=== PATIENT | female | born 1990 | race American Indian/Alaskan Native ===

== ENCOUNTER 2018-03-15 17:12 | Inpatient (IN) | payer MEDICAID ==
[2018-03-15 17:13] VITALS: BMI 38.4
[2018-03-15 18:36] LABS: VENOUS BLOOD GAS BASE EXCESS -2.2 mmol/L (0.0-2.0); VENOUS BLOOD GAS PCO2 47 mmHg (40-60); VENOUS BLOOD GAS PO2 19 mm/Hg (30-55); VENOUS BLOOD PH 7.32 (7.32-7.43)
[2018-03-15 18:42] LABS: BASO % 0.2 % (0.0-2.0); EOS % 0.1 % (0.0-4.0); LYMPH # 1.8 K/uL (1.0-4.3); MEAN CELL VOLUME 75.9 fl (81.0-99.0); MEAN CORPUSCULAR HEMOGLOBIN 23.2 pg (27.0-31.0); MEAN CORPUSCULAR HGB CONC 30.5 g/dL (33.0-37.0); MEAN PLATELET VOLUME 7.7 fl (7.2-11.7); MONO # 0.7 K/uL (0.0-0.8); MONO % 4.2 % (0.0-10.0); NEUT # 13.6 K/uL (1.8-7.0); NEUT % 84.5 % (50.0-75.0); RBC 3.47 Mil/uL (3.80-5.20); RED CELL DISTRIBUTION WIDTH 29.6 % (11.5-14.5); WHITE BLOOD COUNT 16.1 K/uL (4.8-10.8)
[2018-03-15 18:47] LABS: ALB/GLOB RATIO 0.9 (1.0-2.1); ALBUMIN 3.8 g/dL (3.5-5.0); ALT/SGPT 21 U/L (9-52); AST/SGOT 19 U/L (14-36); BLOOD UREA NITROGEN 6 mg/dl (7-17); CALCIUM 9.2 mg/dL (8.4-10.2); GFR NON-AFRICAN AMERICAN > 60; LIPASE 38 U/L (23-300)
--- NOTE | 2018-03-15 18:58 | ED PDOC ---
HPI: Female Pain Time Seen by Provider: 03/15/18 17:23 Chief Complaint (Nursing): Female Genitourinary Chief Complaint (Provider): Female Genitourinary History Per: Patient History/Exam Limitations: no limitations Onset/Duration Of Symptoms: Hrs Current Symptoms Are (Timing): Still Present Additional Complaint(s): 27 y/o female sent from [facility] by Dr. Marc. Patient had presented with lower abdominal pain and is associated with generalized weakness. Patient is found to have hydrosalpinx on CT and US showed hemorrhagic cysts with free fluid and a white blood cell count of 20,000. Dr. Marc contacted Dr. Mcneal here at this hospital for transfer of DASHBOARD DEVELOPER follow up. Provider also spoke with myself with the understanding brick pointer wanted repeat labs on arrival to [place] ED. Of note, blood culture and antibiotics were not started at [facility]. Blood cultures sent and antibiotics to be given pending further recommendations from [facility]ASHBOARD DEVELOPER. Patient states she continues to have abdominal discomfort worse in the lower abdomen. Patient states pain has worsened since menstruation cycle began on 02/27/2018. Menstruation has continued since. Patient additionally reports a PMHc of Sickle Cell Disease and Anemia requiring weekly PRBC transfusions. Patient scheduled for court placement at [facility] for increasing need of transfusion. Patient reports no changed of pain or new onset since being evaluated at [facility]. Patient understanding she came to this hospital for upgraded gynecologic pain. Provider spoke to Dr. Alberto who states she prefers to have repeat US at this hospital based on what she determines to be an unclear read of the [facility] Transvaginal US. Provider contacted radiologist, Dr. Carrizales for clarification of read unsuccessful. Provider to repeat labs including cultures and Transvaginal US ordered as per request of DASHBOARD DEVELOPER. PMD: Dede Fay Past Medical History Reviewed: Historical Data, Nursing Documentation, Vital Signs Vital Signs: Last Vital Signs Temp 99.6 F 03/15/18 17:15 Pulse 92 H 03/15/18 17:15 Resp 18 03/15/18 17:15 BP 136/70 03/15/18 17:15 Pulse Ox 100 03/15/18 17:15 - Medical History PMH: Anemia, Sickle Cell Disease Denies: Depression, Chronic Kidney Disease - Surgical History Surgical History: Tonsillectomy Denies: Pacemaker - Family History Family History: States: Unknown Family Hx - Immunization History Hx Tetanus Toxoid Vaccination: Yes Hx Influenza Vaccination: No Hx Pneumococcal Vaccination: No - Home Medications Home Medications: Ambulatory Orders Medication Instructions Recorded No Known Home Med 03/12/18 - Allergies Allergies/Adverse Reactions: Allergies Allergy/AdvReac Type Severity Reaction Status Date / Time No Known Allergies Allergy Verified 03/15/18 08:59 Review of Systems ROS Statement: Except As Marked, All Systems Reviewed And Found Negative Constitutional: Positive for: Other (Transfer) Gastrointestinal: Positive for: Abdominal Pain (lower) Physical Exam - Reviewed Nursing Documentation Reviewed: Yes Vital Signs Reviewed: Yes - Physical Exam Appears: Positive for: No Acute Distress Skin: Positive for: Pallor Eye Exam: Positive for: Conjunctival injection Neck: Positive for: Normal Cardiovascular/Chest: Positive for: Regular Rate, Rhythm. Negative for: Murmur Respiratory: Positive for: Normal Breath Sounds. Negative for: Respiratory Distress Gastrointestinal/Abdominal: Positive for: Soft, Tenderness (to all quadrants however worse in the lower), Guarding (Diffuse) Extremity: Positive for: Normal ROM. Negative for: Deformity Neurologic/Psych: Positive for: Alert, Oriented - Laboratory Results Result Diagrams: 03/15/18 18:29 03/15/18 18:29 - ECG O2 Sat by Pulse Oximetry: 100 (RA) Pulse Ox Interpretation: Normal Medical Decision Making Medical Decision Making: Time: 1739 A/P: Patient to be transferred to [facility], pending results of blood work and Transvaginal US. Plan: -- EKG -- HCG, Qualitative Series -- Pelvis/Transvag US Time: 1852 Plan: -- Urine Culture -- Blood Culture -- CBC with Differentials -- Lipase -- CMP -- VBG -- Type and Screen Time: 1899 -- Case discussed with overnight ED doctor who will reassess patient. ___ Scribe Attestation: Documented by Ailyn Barrett acting as a scribe for Mirtha Joyner MD. Provider Scribe Attestation: All medical record entries made by the Scribe were at my direction and personally dictated by me. I have reviewed the chart and agree that the record accurately reflects my personal performance of the history, physical exam, medical decision making, and the department course for this patient. I have also personally directed, reviewed, and agree with the discharge instructions and disposition. Disposition - Disposition Forms: [employer] (Algerian)
[2018-03-15 19:12] LABS: SQUAMOUS EPITHIAL 2 /hpf (0-5); URINE BACTERIA RARE (<OCC); URINE BILIRUBIN NEGATIVE (NEGATIVE); URINE BLOOD LARGE (NEGATIVE); URINE CLARITY SLIGHTY-CLOUDY (Clear); URINE COLOR YELLOW (YELLOW); URINE GLUCOSE (UA) NEG (Normal); URINE LEUKOCYTE ESTERASE SMALL Leu/uL (Negative); URINE PROTEIN 100 mg/dL (NEGATIVE)
--- NOTE | 2018-03-15 19:50 | ED PDOC ---
- Laboratory Results Result Diagrams: 03/16/18 00:09 03/15/18 18:29 - ECG O2 Sat by Pulse Oximetry: 100 (RA) Pulse Ox Interpretation: Normal Medical Decision Making Medical Decision Making: Time: 190 -- Patient endorsed to me by Dr. Joyner, pending ER workup, reassessment and final ER disposition. --Sign-out from Dr. Joyner also included instructions to hold ABx until eval by CD REACTOR OPERATOR HEAD 2300 --U/S results made available --Dr. Mcneal made aware of patient 0000 --Patient spiked temperature and became tachycardic --Patient moved to monitored bed 100 --Dr. Mcneal at bedside, agrees with management for PID --Patient had urine and blood cultures including GC/Chlamydia prior to ABx --Will admit to CD REACTOR OPERATOR HEAD service in tele given sepsis Scribe Attestation: Documented by Ailyn Barrett acting as a scribe for Johnathan Lane MD. Provider Scribe Attestation: All medical record entries made by the Scribe were at my direction and personally dictated by me. I have reviewed the chart and agree that the record accurately reflects my personal performance of the history, physical exam, medical decision making, and the department course for this patient. I have also personally directed, reviewed, and agree with the discharge instructions and disposition. Disposition Discussed With : Mirtha Mcneal Doctor Will See Patient In The: ED - Clinical Impression Clinical Impression: Pelvic inflammatory disease - POA Present On Arrival: None - Disposition Disposition: Hospitalized as Observation Patient Disposition Time: 01:00 Forms: [employer] (Sinhala)
[2018-03-15] MEDS ORDERED: Sodium Chloride 0.9% 1,000 ML IV STA (23:29)
[2018-03-15] MEDS ORDERED: cefOXitin 2 GM in Sodium Chloride 0.9% 100 ML IVPB ONE (23:44)
[2018-03-16 00:25] LABS: HEMOGLOBIN 9.4 g/dL (12.0-16.0); MEAN CELL VOLUME 73.7 fl (81.0-99.0); MEAN CORPUSCULAR HEMOGLOBIN 23.2 pg (27.0-31.0); MEAN CORPUSCULAR HGB CONC 31.5 g/dL (33.0-37.0); RBC 4.07 Mil/uL (3.80-5.20); RED CELL DISTRIBUTION WIDTH 29.5 % (11.5-14.5); WHITE BLOOD COUNT 20.1 K/uL (4.8-10.8)
[2018-03-16 00:33] LABS: VENOUS BLOOD GAS BASE EXCESS -2.2 mmol/L (0.0-2.0); VENOUS BLOOD GAS PCO2 41 mmHg (40-60); VENOUS BLOOD GAS PO2 38 mm/Hg (30-55); VENOUS BLOOD PH 7.36 (7.32-7.43)
--- NOTE | 2018-03-16 02:24 | CP.PCM.HP ---
<José James - Last Filed: 03/16/18 02:44> History of Present Illness - History of Present Illness History of Present Illness: 27 y/o AA female with PMHx of chronic iron deficiency and sickle cell trait presents to ED with lower abdominal pain and fever. Patient was evaluated at [facility] where she was diagnosed with PID. Patient then transferred to [facility] for further management. Patient reports lower abdominal pain that started on 02/27/18 and progressively worsened over next 2 weeks. Patient also had associated nausea and 1 x day fever. LMP 02/27/18 and has been continuous since then. Patient is sexually active with new sexual partner for last 6 months. Pt tested positive for Chlamydia 2 months ago which was treated with Abx. She reports using contraception inconsistently. As per patient she also receives iron transfusion weekly since age 15 for chronic anemia. Denies any headache, dizziness, diarrhea, vomiting, dysuria, CP or SOB. PMHx: Sickle cell trait PSHx: Tonsillectomy 2011 Allergies: Denies F/H: DM - grandmother Social Hx: Denies tobacco, drug use, social alcohol Medications: None PGyn Hx: H/O + chlamydia 01/06 treated with Abx ED course: CT abdomen: There are at least 2 peripherally enhancing (ring-like) foci within the right aspect of the pelvis likely within the right adnexal region measuring approximately 3.1 x 2.9 and 2.2 x 1.5 cm with surrounding free fluid extending into the cul de sac and extending into the right to the left side seroma partia lly surrounding the posterior margin of the left adnexal as well. US consistent with CT findings. VS: Febrile, HR 92, stable otherwise Started on Cefoxitin 2 mg IVPB and Doxycycline 100 mg once Blood culture, CBC, CMP Urine culture and GC/Chlamydia sent. Patient to be transferred to [facility] for monitoring Present on Admission - Present on Admission Any Indicators Present on Admission: No History of DVT/PE: No History of Uncontrolled Diabetes: No Urinary Catheter: No Decubitus Ulcer Present: No Review of Systems - Constitutional Constitutional: Fever, Weakness - EENT Eyes: absent: Change in Vision - Cardiovascular Cardiovascular: absent: Chest Pain - Respiratory Respiratory: absent: Dyspnea on Exertion - Gastrointestinal Gastrointestinal: Abdominal Pain - Genitourinary Genitourinary: absent: Dysuria - Reproductive: Female Reproductive:Female: Currently Menstual, Heavy Menses, Vaginal Discharge Past Patient History - Infectious Disease Hx of Infectious Diseases: None - Tetanus Immunizations Tetanus Immunization: Unknown - Past Social History Smoking Status: Never Smoked - CARDIAC Hx Pacemaker: No - PULMONARY Hx Respiratory Disorders: No - NEUROLOGICAL Hx Paralysis: No - HEENT Hx HEENT Problems: No - RENAL Hx Chronic Kidney Disease: No - ENDOCRINE/METABOLIC Hx Endocrine Disorders: No - HEMATOLOGICAL/ONCOLOGICAL Hx Anemia: Yes Hx Sickle Cell Disease: Yes - INTEGUMENTARY Hx Dermatological Problems: No - MUSCULOSKELETAL/RHEUMATOLOGICAL Hx Musculoskeletal Disorders: No - GASTROINTESTINAL Hx Gastrointestinal Disorders: No - GENITOURINARY/GYNECOLOGICAL Hx Genitourinary Disorders: No - PSYCHIATRIC Hx Depression: No - SURGICAL HISTORY Hx Tonsillectomy: Yes - ANESTHESIA Hx Anesthesia Reactions: No Hx Malignant Hyperthermia: No Meds Allergies/Adverse Reactions: Allergies Allergy/AdvReac Type Severity Reaction Status Date / Time No Known Allergies Allergy Verified 03/15/18 08:59 Physical Exam - Constitutional Appears: Toxic - Head Exam Head Exam: ATRAUMATIC, NORMAL INSPECTION, NORMOCEPHALIC - ENT Exam ENT Exam: Mucous Membranes Moist - Respiratory Exam Respiratory Exam: Clear to Auscultation Bilateral, NORMAL BREATHING PATTERN. absent: Rales, Rhonchi, Wheezes - Cardiovascular Exam Cardiovascular Exam: Tachycardia, +S1, +S2 - GI/Abdominal Exam GI & Abdominal Exam: Soft, Tenderness. absent: Distended - Exam Bimanual exam: Adnexal, Cervical Motion Tendernes - Back Exam Back exam: absent: CVA tenderness (L), CVA tenderness (R) - Neurological Exam Neurological exam: Alert, Oriented x3 - Psychiatric Exam Psychiatric exam: Normal Affect, Normal Mood Results - Vital Signs Recent Vital Signs: Last Vital Signs Temp 101.4 F H 03/15/18 23:28 Pulse 92 H 03/15/18 17:15 Resp 16 03/15/18 23:28 BP 116/70 03/15/18 23:28 Pulse Ox 100 03/16/18 01:57 - Labs Result Diagrams: 03/16/18 00:09 03/15/18 18:29 Labs: Laboratory Results - last 24 hr 03/15/18 03/15/18 03/15/18 18:29 18:29 18:30 WBC 16.1 H RBC 3.47 L Hgb 8.0 L Hct 26.3 L MCV 75.9 L MCH 23.2 L MCHC 30.5 L RDW 29.6 H Plt Count 268 MPV 7.7 Neut % (Auto) 84.5 H Lymph % (Auto) 11.0 L Campbell % (Auto) 4.2 Eos % (Auto) 0.1 Baso % (Auto) 0.2 Neut # (Auto) 13.6 H Lymph # (Auto) 1.8 Campbell # (Auto) 0.7 Eos # (Auto) 0.0 Baso # (Auto) 0.0 pO2 19 L VBG pH 7.32 VBG pCO2 47 VBG HCO3 21.2 VBG Total CO2 25.6 VBG O2 Sat (Calc) 33.3 L VBG Base Excess -2.2 L VBG Potassium 3.7 Glucose 90 Lactate 1.4 FiO2 21.0 Sodium 139 134.0 Potassium 3.9 Chloride 106 105.0 Carbon Dioxide 21 L Anion Gap 16 BUN 6 L Creatinine 0.7 Est GFR ( Amer) > 60 Est GFR (Non-Af Amer) > 60 Random Glucose 90 Calcium 9.2 Total Bilirubin 0.5 AST 19 ALT 21 Alkaline Phosphatase 92 Total Protein 8.0 Albumin 3.8 Globulin 4.2 H Albumin/Globulin Ratio 0.9 L Lipase 38 Serum HCG, Qual Venous Blood Potassium 3.7 Urine Color Urine Clarity Urine pH Ur Specific Pioneer Urine Protein Urine Glucose (UA) Urine Ketones Urine Blood Urine Nitrate Urine Bilirubin Urine Urobilinogen Ur Leukocyte Esterase Urine RBC (Auto) Urine Microscopic WBC Ur Squamous Epith Cells Urine Bacteria Blood Type Antibody Screen BBK History Checked 03/15/18 03/15/18 03/15/18 18:53 19:30 19:30 WBC RBC Hgb Hct MCV MCH MCHC RDW Plt Count MPV Neut % (Auto) Lymph % (Auto) Campbell % (Auto) Eos % (Auto) Baso % (Auto) Neut # (Auto) Lymph # (Auto) Campbell # (Auto) Eos # (Auto) Baso # (Auto) pO2 VBG pH VBG pCO2 VBG HCO3 VBG Total CO2 VBG O2 Sat (Calc) VBG Base Excess VBG Potassium Glucose Lactate FiO2 Sodium Potassium Chloride Carbon Dioxide Anion Gap BUN Creatinine Est GFR ( Amer) Est GFR (Non-Af Amer) Random Glucose Calcium Total Bilirubin AST ALT Alkaline Phosphatase Total Protein Albumin Globulin Albumin/Globulin Ratio Lipase Serum HCG, Qual Negative Venous Blood Potassium Urine Color Yellow Urine Clarity Slighty-cloudy Urine pH 5.0 Ur Specific Pioneer 1.059 H Urine Protein 100 Urine Glucose (UA) Neg Urine Ketones 20 Urine Blood Large Urine Nitrate Negative Urine Bilirubin Negative Urine Urobilinogen 4.0 H Ur Leukocyte Esterase Small Urine RBC (Auto) 1078 H Urine Microscopic WBC 11 H Ur Squamous Epith Cells 2 Urine Bacteria Rare Blood Type A NEGATIVE Antibody Screen Negative BBK History Checked Patient has bt 03/16/18 03/16/18 00:09 00:28 WBC 20.1 H RBC 4.07 Hgb 9.4 L Hct 30.0 L MCV 73.7 L D MCH 23.2 L MCHC 31.5 L RDW 29.5 H Plt Count 458 H D MPV Neut % (Auto) Lymph % (Auto) Campbell % (Auto) Eos % (Auto) Baso % (Auto) Neut # (Auto) Lymph # (Auto) Campbell # (Auto) Eos # (Auto) Baso # (Auto) pO2 38 VBG pH 7.36 VBG pCO2 41 VBG HCO3 22.5 VBG Total CO2 24.5 VBG O2 Sat (Calc) 76.9 H VBG Base Excess -2.2 L VBG Potassium 3.3 L Glucose 133 H Lactate 1.1 FiO2 21.0 Sodium 133.0 Potassium Chloride 105.0 Carbon Dioxide Anion Gap BUN Creatinine Est GFR ( Amer) Est GFR (Non-Af Amer) Random Glucose Calcium Total Bilirubin AST ALT Alkaline Phosphatase Total Protein Albumin Globulin Albumin/Globulin Ratio Lipase Serum HCG, Qual Venous Blood Potassium 3.3 L Urine Color Urine Clarity Urine pH Ur Specific Pioneer Urine Protein Urine Glucose (UA) Urine Ketones Urine Blood Urine Nitrate Urine Bilirubin Urine Urobilinogen Ur Leukocyte Esterase Urine RBC (Auto) Urine Microscopic WBC Ur Squamous Epith Cells Urine Bacteria Blood Type Antibody Screen BBK History Checked Assessment & Plan - Assessment and Plan (Free Text) Assessment: 7 y/o AA female with PMHx of chronic iron deficiency and sickle cell trait presents to ED with lower abdominal pain and fever. Physical exam, CT abdomen and US TV consistent with PID. Plan: PID - Febrile, Tachycardic - S/P NS 2L bolus in ER - On Telemetry, Vitals signs Q4 - Started on Mefoxin 2 gm IVPB Q6hr - Started on Doxycycline 100 mg IVPB BID - NS 1L @ 100 ml/hr - F/U Blood culture, Urine culture and GC/Chlamydia - Monitor CBC Iron deficiency anemia - Chronic - Will monitor CBC - Outpatient F/U with Childhood Development Teacher and Ob-Teacher Counselor for further evaluation DVT prophylaxis - SCDs <Mirtha Mcneal - Last Filed: 03/16/18 17:44> Results - Vital Signs Recent Vital Signs: Last Vital Signs Temp 98.4 F 03/16/18 16:11 Pulse 83 03/16/18 16:11 Resp 16 03/16/18 16:11 BP 98/64 L 03/16/18 16:11 Pulse Ox 97 03/16/18 16:11 - Labs Result Diagrams: 03/16/18 10:43 03/15/18 18:29 Labs: Laboratory Results - last 24 hr 03/15/18 03/15/18 03/15/18 18:29 18:29 18:30 WBC 16.1 H RBC 3.47 L Hgb 8.0 L Hct 26.3 L MCV 75.9 L MCH 23.2 L MCHC 30.5 L RDW 29.6 H Plt Count 268 MPV 7.7 Neut % (Auto) 84.5 H Lymph % (Auto) 11.0 L Campbell % (Auto) 4.2 Eos % (Auto) 0.1 Baso % (Auto) 0.2 Neut # (Auto) 13.6 H Lymph # (Auto) 1.8 Campbell # (Auto) 0.7 Eos # (Auto) 0.0 Baso # (Auto) 0.0 Neutrophils % (Manual) Band Neutrophils % Lymphocytes % (Manual) Monocytes % (Manual) Platelet Estimate Hypochromasia (manual) Anisocytosis (manual) Microcytosis (manual) Ovalocytes pO2 19 L VBG pH 7.32 VBG pCO2 47 VBG HCO3 21.2 VBG Total CO2 25.6 VBG O2 Sat (Calc) 33.3 L VBG Base Excess -2.2 L VBG Potassium 3.7 Glucose 90 Lactate 1.4 FiO2 21.0 Sodium 139 134.0 Potassium 3.9 Chloride 106 105.0 Carbon Dioxide 21 L Anion Gap 16 BUN 6 L Creatinine 0.7 Est GFR ( Amer) > 60 Est GFR (Non-Af Amer) > 60 Random Glucose 90 Calcium 9.2 Total Bilirubin 0.5 AST 19 ALT 21 Alkaline Phosphatase 92 Total Protein 8.0 Albumin 3.8 Globulin 4.2 H Albumin/Globulin Ratio 0.9 L Lipase 38 Serum HCG, Qual Venous Blood Potassium 3.7 Urine Color Urine Clarity Urine pH Ur Specific Pioneer Urine Protein Urine Glucose (UA) Urine Ketones Urine Blood Urine Nitrate Urine Bilirubin Urine Urobilinogen Ur Leukocyte Esterase Urine RBC (Auto) Urine Microscopic WBC Ur Squamous Epith Cells Urine Bacteria Blood Type Antibody Screen BBK History Checked 03/15/18 03/15/18 03/15/18 18:53 19:30 19:30 WBC RBC Hgb Hct MCV MCH MCHC RDW Plt Count MPV Neut % (Auto) Lymph % (Auto) Campbell % (Auto) Eos % (Auto) Baso % (Auto) Neut # (Auto) Lymph # (Auto) Campbell # (Auto) Eos # (Auto) Baso # (Auto) Neutrophils % (Manual) Band Neutrophils % Lymphocytes % (Manual) Monocytes % (Manual) Platelet Estimate Hypochromasia (manual) Anisocytosis (manual) Microcytosis (manual) Ovalocytes pO2 VBG pH VBG pCO2 VBG HCO3 VBG Total CO2 VBG O2 Sat (Calc) VBG Base Excess VBG Potassium Glucose Lactate FiO2 Sodium Potassium Chloride Carbon Dioxide Anion Gap BUN Creatinine Est GFR ( Amer) Est GFR (Non-Af Amer) Random Glucose Calcium Total Bilirubin AST ALT Alkaline Phosphatase Total Protein Albumin Globulin Albumin/Globulin Ratio Lipase Serum HCG, Qual Negative Venous Blood Potassium Urine Color Yellow Urine Clarity Slighty-cloudy Urine pH 5.0 Ur Specific Pioneer 1.059 H Urine Protein 100 Urine Glucose (UA) Neg Urine Ketones 20 Urine Blood Large Urine Nitrate Negative Urine Bilirubin Negative Urine Urobilinogen 4.0 H Ur Leukocyte Esterase Small Urine RBC (Auto) 1078 H Urine Microscopic WBC 11 H Ur Squamous Epith Cells 2 Urine Bacteria Rare Blood Type A NEGATIVE Antibody Screen Negative BBK History Checked Patient has bt 03/16/18 03/16/18 03/16/18 00:09 00:28 10:43 WBC 20.1 H 15.9 H RBC 4.07 3.64 L Hgb 9.4 L 8.5 L Hct 30.0 L 26.9 L MCV 73.7 L D 74.0 L MCH 23.2 L 23.4 L MCHC 31.5 L 31.6 L RDW 29.5 H 29.3 H Plt Count 458 H D 400 MPV 7.7 Neut % (Auto) 83.4 H Lymph % (Auto) 9.5 L Campbell % (Auto) 6.6 Eos % (Auto) 0.3 Baso % (Auto) 0.2 Neut # (Auto) 13.3 H Lymph # (Auto) 1.5 Campbell # (Auto) 1.0 H Eos # (Auto) 0.0 Baso # (Auto) 0.0 Neutrophils % (Manual) 80 H Band Neutrophils % 2 Lymphocytes % (Manual) 10 L Monocytes % (Manual) 8 Platelet Estimate Normal Hypochromasia (manual) Moderate Anisocytosis (manual) Marked Microcytosis (manual) Slight Ovalocytes Slight pO2 38 VBG pH 7.36 VBG pCO2 41 VBG HCO3 22.5 VBG Total CO2 24.5 VBG O2 Sat (Calc) 76.9 H VBG Base Excess -2.2 L VBG Potassium 3.3 L Glucose 133 H Lactate 1.1 FiO2 21.0 Sodium 133.0 Potassium Chloride 105.0 Carbon Dioxide Anion Gap BUN Creatinine Est GFR ( Amer) Est GFR (Non-Af Amer) Random Glucose Calcium Total Bilirubin AST ALT Alkaline Phosphatase Total Protein Albumin Globulin Albumin/Globulin Ratio Lipase Serum HCG, Qual Venous Blood Potassium 3.3 L Urine Color Urine Clarity Urine pH Ur Specific Pioneer Urine Protein Urine Glucose (UA) Urine Ketones Urine Blood Urine Nitrate Urine Bilirubin Urine Urobilinogen Ur Leukocyte Esterase Urine RBC (Auto) Urine Microscopic WBC Ur Squamous Epith Cells Urine Bacteria Blood Type Antibody Screen BBK History Checked Assessment & Plan - Assessment and Plan (Free Text) Plan: OB Hospitalist Addendum: Pt seen and examined by me. Agree w/ above. 27 yo w/ abdominal pain x 2 weeks w/ dx PID. Pt started on IV fluids, cefoxitin and doxycycline for PID coverage. Pt reports that she has had this period since 02/27/2018. Pt reports that she usually has monthly periods that last for only 4 days. Pt has been dx'd w/ anemia since menarche. Rec that she f/u w/ gyneco logist in [place] for irregular bleeding. (ES)
[2018-03-16] MEDS: Sodium Chloride 0.9% 1,000 ML IV SCH ×4 (02:31→23:06)
[2018-03-16] MEDS: cefOXitin 2 GM in Sodium Chloride 0.9% 100 ML IVPB SCH ×3 (06:15→23:15)
[2018-03-16 10:53] LABS: BASO % 0.2 % (0.0-2.0); EOS % 0.3 % (0.0-4.0); HEMOGLOBIN 8.5 g/dL (12.0-16.0); LYMPH # 1.5 K/uL (1.0-4.3); LYMPH % 9.5 % (20.0-40.0); MEAN CORPUSCULAR HEMOGLOBIN 23.4 pg (27.0-31.0); MEAN CORPUSCULAR HGB CONC 31.6 g/dL (33.0-37.0); MEAN PLATELET VOLUME 7.7 fl (7.2-11.7); MONO % 6.6 % (0.0-10.0); NEUT # 13.3 K/uL (1.8-7.0); NEUT % 83.4 % (50.0-75.0); PLATELET COUNT 400 K/uL (130-400); RBC 3.64 Mil/uL (3.80-5.20); RED CELL DISTRIBUTION WIDTH 29.3 % (11.5-14.5); WHITE BLOOD COUNT 15.9 K/uL (4.8-10.8)
--- NOTE | 2018-03-16 11:48 | CP.PCM.CON ---
History of Present Illness - History of Present Illness History of Present Illness: Infectious Disease Consultation Note- asked to see this patietn at the request of toppiece cutter for PID and help with antibiotic management. HPI- Patient is a 27 year old female with PMH f sickle cell trait , Irone deficinecy anemia who presented to [facility] ED yesterday with c/o lower abd. pain and fever and was diagnosed with PID there but was transferred here for further work up and treatment. Patient reports lower abdominal pain that started on 02/27/18 and progressively worsened over next 2 weeks. Patient also had associated nausea and 1 x day fever. LMP 02/27/18 and has been continuous since then. Patient is sexually active with new sexual partner for last 6 months. Pt tested positive for Chlamydia 2 months ago which was treated with Abx. She reports using contraception inconsistently. As per patient she also receives iron transfusion weekly since age 15 for chronic anemia. Denies any headache, dizziness, diarrhea, vomiting, dysuria, CP or SOB. she states she had some nausea but has resolved. she denies ever being as well. PMHx: Sickle cell trait PSHx: Tonsillectomy 2011 Allergies: Denies F/H: DM - grandmother Social Hx: Denies tobacco, drug use, social alcohol Medications: None PGyn Hx: H/O + chlamydia 01/06 treated with Abx ED course: CT abdomen: There are at least 2 peripherally enhancing (ring-like) foci within the right aspect of the pelvis likely within the right adnexal region measuring approximately 3.1 x 2.9 and 2.2 x 1.5 cm with surrounding free fluid extending into the cul de sac and extending into the right to the left side seroma partially surrounding the posterior margin of the left adnexal as well. US consistent with CT findings. has been Started on Cefoxitin 2 mg IVPB and Doxycycline 100 mg once as per cuff maker team. Review of Systems - Review of Systems Review of Systems: as stated in HPI Past Patient History - Infectious Disease Hx of Infectious Diseases: None - Tetanus Immunizations Tetanus Immunization: Unknown - Past Social History Smoking Status: Never Smoked - CARDIAC Hx Cardiac Disorders: No - PULMONARY Hx Respiratory Disorders: No - NEUROLOGICAL Hx Neurological Disorder: No - HEENT Hx HEENT Problems: No - RENAL Hx Chronic Kidney Disease: No - ENDOCRINE/METABOLIC Hx Endocrine Disorders: No - HEMATOLOGICAL/ONCOLOGICAL Hx Anemia: Yes Hx Sickle Cell Disease: Yes - INTEGUMENTARY Hx Dermatological Problems: No - MUSCULOSKELETAL/RHEUMATOLOGICAL Hx Musculoskeletal Disorders: No Hx Falls: Yes - GASTROINTESTINAL Hx Gastrointestinal Disorders: No - GENITOURINARY/GYNECOLOGICAL Hx Genitourinary Disorders: No - PSYCHIATRIC Hx Depression: No Hx Substance Use: No - SURGICAL HISTORY Hx Tonsillectomy: Yes - ANESTHESIA Hx Anesthesia Reactions: No Hx Malignant Hyperthermia: No Meds Allergies/Adverse Reactions: Allergies Allergy/AdvReac Type Severity Reaction Status Date / Time No Known Allergies Allergy Verified 03/15/18 08:59 - Medications Medications: Current Medications Acetaminophen (Tylenol 325mg Tab) 650 mg PO Q4 PRN PRN Reason: Fever >100.4 F Sodium Chloride (Sodium Chloride 0.9%) 1,000 mls @ 1,000 mls/hr IV .Q1H MICHELLE Stop: 03/17/18 01:58 Last Admin: 03/16/18 02:31 Dose: 1,000 mls/hr Cefoxitin Sodium 2 gm/ Sodium (Chloride) 100 mls @ 100 mls/hr IVPB Q6H MICHELLE; Protocol Last Admin: 03/16/18 06:15 Dose: 100 mls/hr Doxycycline Hyclate 100 mg/ (Sodium Chloride) 100 mls @ 100 mls/hr IVPB Q12H MICHELLE; Protocol Sodium Chloride (Sodium Chloride 0.9%) 1,000 mls @ 100 mls/hr IV .Q10H MICHELLE Stop: 03/17/18 02:41 Last Admin: 03/16/18 06:18 Dose: 100 mls/hr Ondansetron HCl (Zofran Inj) 4 mg IVP Q6 PRN PRN Reason: Nausea/Vomiting Physical Exam - Constitutional Appears: No Acute Distress - Head Exam Head Exam: ATRAUMATIC - Eye Exam Eye Exam: EOMI, PERRL - ENT Exam ENT Exam: Normal Oropharynx - Neck Exam Neck exam: Positive for: Full Rom - Respiratory Exam Respiratory Exam: Clear to Auscultation Bilateral, NORMAL BREATHING PATTERN - Cardiovascular Exam Cardiovascular Exam: RRR, +S1, +S2 - GI/Abdominal Exam Additional comments: slightly distended, soft, + tenderness along lower abdomen no guarding, no rebound NO CVA tenderness b/l - Extremities Exam Extremities exam: Positive for: normal inspection - Neurological Exam Neurological exam: Alert, Oriented x3 Results - Vital Signs Recent Vital Signs: Last Vital Signs Temp 98.5 F 03/16/18 05:00 Pulse 82 03/16/18 05:00 Resp 16 03/16/18 05:00 BP 102/61 03/16/18 05:00 Pulse Ox 100 03/16/18 05:00 - Labs Result Diagrams: 03/16/18 10:43 03/15/18 18:29 Labs: Laboratory Results - last 24 hr 03/15/18 03/15/18 03/15/18 18:29 18:29 18:30 WBC 16.1 H RBC 3.47 L Hgb 8.0 L Hct 26.3 L MCV 75.9 L MCH 23.2 L MCHC 30.5 L RDW 29.6 H Plt Count 268 MPV 7.7 Neut % (Auto) 84.5 H Lymph % (Auto) 11.0 L [place] % (Auto) 4.2 Eos % (Auto) 0.1 Baso % (Auto) 0.2 Neut # (Auto) 13.6 H Lymph # (Auto) 1.8 [place] # (Auto) 0.7 Eos # (Auto) 0.0 Baso # (Auto) 0.0 pO2 19 L VBG pH 7.32 VBG pCO2 47 VBG HCO3 21.2 VBG Total CO2 25.6 VBG O2 Sat (Calc) 33.3 L VBG Base Excess -2.2 L VBG Potassium 3.7 Glucose 90 Lactate 1.4 FiO2 21.0 Sodium 139 134.0 Potassium 3.9 Chloride 106 105.0 Carbon Dioxide 21 L Anion Gap 16 BUN 6 L Creatinine 0.7 Est GFR ( Amer) > 60 Est GFR (Non-Af Amer) > 60 Random Glucose 90 Calcium 9.2 Total Bilirubin 0.5 AST 19 ALT 21 Alkaline Phosphatase 92 Total Protein 8.0 Albumin 3.8 Globulin 4.2 H Albumin/Globulin Ratio 0.9 L Lipase 38 Serum HCG, Qual Venous Blood Potassium 3.7 Urine Color Urine Clarity Urine pH Ur Specific [place] Urine Protein Urine Glucose (UA) Urine Ketones Urine Blood Urine Nitrate Urine Bilirubin Urine Urobilinogen Ur Leukocyte Esterase Urine RBC (Auto) Urine Microscopic WBC Ur Squamous Epith Cells Urine Bacteria Blood Type Antibody Screen BBK History Checked 03/15/18 03/15/18 03/15/18 18:53 19:30 19:30 WBC RBC Hgb Hct MCV MCH MCHC RDW Plt Count MPV Neut % (Auto) Lymph % (Auto) [place] % (Auto) Eos % (Auto) Baso % (Auto) Neut # (Auto) Lymph # (Auto) [place] # (Auto) Eos # (Auto) Baso # (Auto) pO2 VBG pH VBG pCO2 VBG HCO3 VBG Total CO2 VBG O2 Sat (Calc) VBG Base Excess VBG Potassium Glucose Lactate FiO2 Sodium Potassium Chloride Carbon Dioxide Anion Gap BUN Creatinine Est GFR ( Amer) Est GFR (Non-Af Amer) Random Glucose Calcium Total Bilirubin AST ALT Alkaline Phosphatase Total Protein Albumin Globulin Albumin/Globulin Ratio Lipase Serum HCG, Qual Negative Venous Blood Potassium Urine Color Yellow Urine Clarity Slighty-cloudy Urine pH 5.0 Ur Specific [place] 1.059 H Urine Protein 100 Urine Glucose (UA) Neg Urine Ketones 20 Urine Blood Large Urine Nitrate Negative Urine Bilirubin Negative Urine Urobilinogen 4.0 H Ur Leukocyte Esterase Small Urine RBC (Auto) 1078 H Urine Microscopic WBC 11 H Ur Squamous Epith Cells 2 Urine Bacteria Rare Blood Type A NEGATIVE Antibody Screen Negative BBK History Checked Patient has bt 03/16/18 03/16/18 03/16/18 00:09 00:28 10:43 WBC 20.1 H 15.9 H RBC 4.07 3.64 L Hgb 9.4 L 8.5 L Hct 30.0 L 26.9 L MCV 73.7 L D 74.0 L MCH 23.2 L 23.4 L MCHC 31.5 L 31.6 L RDW 29.5 H 29.3 H Plt Count 458 H D 400 MPV 7.7 Neut % (Auto) 83.4 H Lymph % (Auto) 9.5 L [place] % (Auto) 6.6 Eos % (Auto) 0.3 Baso % (Auto) 0.2 Neut # (Auto) 13.3 H Lymph # (Auto) 1.5 [place] # (Auto) 1.0 H Eos # (Auto) 0.0 Baso # (Auto) 0.0 pO2 38 VBG pH 7.36 VBG pCO2 41 VBG HCO3 22.5 VBG Total CO2 24.5 VBG O2 Sat (Calc) 76.9 H VBG Base Excess -2.2 L VBG Potassium 3.3 L Glucose 133 H Lactate 1.1 FiO2 21.0 Sodium 133.0 Potassium Chloride 105.0 Carbon Dioxide Anion Gap BUN Creatinine Est GFR ( Amer) Est GFR (Non-Af Amer) Random Glucose Calcium Total Bilirubin AST ALT Alkaline Phosphatase Total Protein Albumin Globulin Albumin/Globulin Ratio Lipase Serum HCG, Qual Venous Blood Potassium 3.3 L Urine Color Urine Clarity Urine pH Ur Specific [place] Urine Protein Urine Glucose (UA) Urine Ketones Urine Blood Urine Nitrate Urine Bilirubin Urine Urobilinogen Ur Leukocyte Esterase Urine RBC (Auto) Urine Microscopic WBC Ur Squamous Epith Cells Urine Bacteria Blood Type Antibody Screen BBK History Checked Laboratory Results - last 72 hr 03/15/18 03/15/18 03/15/18 18:29 18:29 18:30 WBC 16.1 H RBC 3.47 L Hgb 8.0 L Hct 26.3 L MCV 75.9 L MCH 23.2 L MCHC 30.5 L RDW 29.6 H Plt Count 268 MPV 7.7 Neut % (Auto) 84.5 H Lymph % (Auto) 11.0 L [place] % (Auto) 4.2 Eos % (Auto) 0.1 Baso % (Auto) 0.2 Neut # (Auto) 13.6 H Lymph # (Auto) 1.8 [place] # (Auto) 0.7 Eos # (Auto) 0.0 Baso # (Auto) 0.0 Neutrophils % (Manual) Band Neutrophils % Lymphocytes % (Manual) Monocytes % (Manual) Platelet Estimate Hypochromasia (manual) Anisocytosis (manual) Microcytosis (manual) Ovalocytes pO2 19 L VBG pH 7.32 VBG pCO2 47 VBG HCO3 21.2 VBG Total CO2 25.6 VBG O2 Sat (Calc) 33.3 L VBG Base Excess -2.2 L VBG Potassium 3.7 Glucose 90 Lactate 1.4 FiO2 21.0 Sodium 139 134.0 Potassium 3.9 Chloride 106 105.0 Carbon Dioxide 21 L Anion Gap 16 BUN 6 L Creatinine 0.7 Est GFR ( Amer) > 60 Est GFR (Non-Af Amer) > 60 Random Glucose 90 Calcium 9.2 Total Bilirubin 0.5 AST 19 ALT 21 Alkaline Phosphatase 92 Total Protein 8.0 Albumin 3.8 Globulin 4.2 H Albumin/Globulin Ratio 0.9 L Lipase 38 Serum HCG, Qual Venous Blood Potassium 3.7 Urine Color Urine Clarity Urine pH Ur Specific [place] Urine Protein Urine Glucose (UA) Urine Ketones Urine Blood Urine Nitrate Urine Bilirubin Urine Urobilinogen Ur Leukocyte Esterase Urine RBC (Auto) Urine Microscopic WBC Ur Squamous Epith Cells Urine Bacteria Blood Type Antibody Screen BBK History Checked 03/15/18 03/15/18 03/15/18 18:53 19:30 19:30 WBC RBC Hgb Hct MCV MCH MCHC RDW Plt Count MPV Neut % (Auto) Lymph % (Auto) [place] % (Auto) Eos % (Auto) Baso % (Auto) Neut # (Auto) Lymph # (Auto) [place] # (Auto) Eos # (Auto) Baso # (Auto) Neutrophils % (Manual) Band Neutrophils % Lymphocytes % (Manual) Monocytes % (Manual) Platelet Estimate Hypochromasia (manual) Anisocytosis (manual) Microcytosis (manual) Ovalocytes pO2 VBG pH VBG pCO2 VBG HCO3 VBG Total CO2 VBG O2 Sat (Calc) VBG Base Excess VBG Potassium Glucose Lactate FiO2 Sodium Potassium Chloride Carbon Dioxide Anion Gap BUN Creatinine Est GFR ( Amer) Est GFR (Non-Af Amer) Random Glucose Calcium Total Bilirubin AST ALT Alkaline Phosphatase Total Protein Albumin Globulin Albumin/Globulin Ratio Lipase Serum HCG, Qual Negative Venous Blood Potassium Urine Color Yellow Urine Clarity Slighty-cloudy Urine pH 5.0 Ur Specific [place] 1.059 H Urine Protein 100 Urine Glucose (UA) Neg Urine Ketones 20 Urine Blood Large Urine Nitrate Negative Urine Bilirubin Negative Urine Urobilinogen 4.0 H Ur Leukocyte Esterase Small Urine RBC (Auto) 1078 H Urine Microscopic WBC 11 H Ur Squamous Epith Cells 2 Urine Bacteria Rare Blood Type A NEGATIVE Antibody Screen Negative BBK History Checked Patient has bt 03/16/18 03/16/18 03/16/18 00:09 00:28 10:43 WBC 20.1 H 15.9 H RBC 4.07 3.64 L Hgb 9.4 L 8.5 L Hct 30.0 L 26.9 L MCV 73.7 L D 74.0 L MCH 23.2 L 23.4 L MCHC 31.5 L 31.6 L RDW 29.5 H 29.3 H Plt Count 458 H D 400 MPV 7.7 Neut % (Auto) 83.4 H Lymph % (Auto) 9.5 L [place] % (Auto) 6.6 Eos % (Auto) 0.3 Baso % (Auto) 0.2 Neut # (Auto) 13.3 H Lymph # (Auto) 1.5 [place] # (Auto) 1.0 H Eos # (Auto) 0.0 Baso # (Auto) 0.0 Neutrophils % (Manual) 80 H Band Neutrophils % 2 Lymphocytes % (Manual) 10 L Monocytes % (Manual) 8 Platelet Estimate Normal Hypochromasia (manual) Moderate Anisocytosis (manual) Marked Microcytosis (manual) Slight Ovalocytes Slight pO2 38 VBG pH 7.36 VBG pCO2 41 VBG HCO3 22.5 VBG Total CO2 24.5 VBG O2 Sat (Calc) 76.9 H VBG Base Excess -2.2 L VBG Potassium 3.3 L Glucose 133 H Lactate 1.1 FiO2 21.0 Sodium 133.0 Potassium Chloride 105.0 Carbon Dioxide Anion Gap BUN Creatinine Est GFR ( Amer) Est GFR (Non-Af Amer) Random Glucose Calcium Total Bilirubin AST ALT Alkaline Phosphatase Total Protein Albumin Globulin Albumin/Globulin Ratio Lipase Serum HCG, Qual Venous Blood Potassium 3.3 L Urine Color Urine Clarity Urine pH Ur Specific [place] Urine Protein Urine Glucose (UA) Urine Ketones Urine Blood Urine Nitrate Urine Bilirubin Urine Urobilinogen Ur Leukocyte Esterase Urine RBC (Auto) Urine Microscopic WBC Ur Squamous Epith Cells Urine Bacteria Blood Type Antibody Screen BBK History Checked Microbiology 03/20/16 23:40 Urine Urine Culture - Final Corynebacterium Species 03/15/18 09:30 Urine Urine Culture - Final No Growth (<1,000 CFU/ML) 06/29/13 15:55 Urine Urine Culture - Final 06/29/13 15:55 Urine Organism ID and Sensitivity - Final Accession No. : [id number] Patient Name / ID : SISSY PLATA R / [id number] Exam Date : 03/15/2018 20:19:42 ( Approved ) Study Comment : Sex / Age : F / 27Y Creator : Sparkle Villatoro MD Dictator : Sparkle Villatoro MD Veterinarian Laboratory Animal Care : Compressor Repairer : Sparkle Villatoro MD Approver2 : Report Date : 03/16/2018 11:11:06 My Comment : Date of service: 03/15/2018 HISTORY: lower abdominal pain with WBC of 2000 COMPARISON: None available. TECHNIQUE: Transabdominal and transvaginal pelvic ultrasound was performed. FINDINGS: UTERUS: Measures 7.9 x 4.9 x 5.5 cm. Retroverted, normal in size and appearance. No fibroid or other mass lesion seen. ENDOMETRIUM: Measures 11.1 mm in diameter. Unremarkable. CERVIX: No cervical abnormality identified. RIGHT OVARY: Enlarged and measures 6.3 x 3.3 x 3.3 cm. No solid mass. Normal flow. There is a 2.6 x 2.3 x 2.5 cm simple cyst. There is a 2.0 x 1.3 x 1.0 cm complicated/hemorrhagic cyst. LEFT OVARY: Enlarged and measures 6.2 x 2.4 x 3.7 cm. No solid mass. Normal flow. Small complex fluid collection in the left adnexa. FREE FLUID: No significant free fluid noted. OTHER FINDINGS: None. IMPRESSION: Enlarged bilateral ovaries. 2.6 cm simple cyst in the right ovary. 2.0 cm compli cated/hemorrhagic cyst in the right ovary. No torsion. No simple complex cyst in the left ovary. Small complex fluid collection in the left adnexa. Hydrosalpinx/pyosalpinx cannot be excluded. Gynecologic consult is advised if clinically indicated. A preliminary report was provided by [employer]. Accession No. : [id number] Patient Name / ID : SISSY Jiang / [id number] Exam Date : 03/15/2018 10:30:07 ( Approved ) Study Comment : Sex / Age : F / 27Y Creator : Humberto Phelps MD Dictator : Humberto Phelps MD Veterinarian Laboratory Animal Care : Compressor Repairer : Humberto Phelps MD Approver2 : Report Date : 03/15/2018 11:12:32 My Comment : Date of service: 03/15/2018 PROCEDURE: CT Abdomen and Pelvis HISTORY: Lower abdominal pain/tenderness COMPARISON: Correlation made with abdominal ultrasound 03/21/2016. TECHNIQUE: Contiguous axial images of the abdomen and pelvis performed of following intravenous injection of approximately 100 cc Visipaque Omnipaque 350 contrast material. Additional 2D sagittal and coronal reformats generated. Radiation dose: Total exam DLP = 756.81 mGy-cm. This CT exam was performed using one or more of the following dose reduction techniques: Automated exposure control, adjustment of the mA and/or kV according to patient size, and/or use of iterative reconstruction technique. FINDINGS: LOWER THORAX: Lung bases are clear. No infiltrate effusion or basilar pneumothorax. Heart appears mildly enlarged. No significant pericardial effusion. Small hiatal hernia. LIVER: Liver exhibits normal size measuring nearly 16 cm in CC dimension. Mild diffuse fatty hepatic infiltration. No obvious hepatic mass or collection. Portal and splenic veins are opacified. GALLBLADDER AND BILE DUCTS: Gallbladder appears physiologically distended. No evidence of intraluminal gallbladder calculi. PANCREAS: Pancreas appears unremarkable without masses collections calcifications or significant ductal dilatation. SPLEEN: Unremarkable. No splenomegaly. ADRENALS: Unremarkable. KIDNEYS AND URETERS: Kidneys demonstrate relatively symmetric nephrograms. No evidence of nephrolithiasis or hydronephrosis. Unremarkable. No stone or hydronephrosis. BLADDER: Urinary bladder is incompletely distended which may in part account for thick- walled appearance however correlation with urinalysis to exclude UTI/cystitis. REPRODUCTIVE: There are at least 2 peripherally enhancing (ring-like) foci within the right aspect of the pelvis likely within the right adnexal region measuring approximat randee 3.1 x 2.9 and 2.2 x 1.5 cm with surrounding free fluid extending into the cul de sac and extending into the right to the left side seroma partially surrounding the posterior margin of the left adnexal as well.. Findings may represent ruptured ovarian cyst and/or cysts however the possibility of a hydrosalpinx less likely however not completely excluded.. APPENDIX: Normal appearing appendix best seen on axial image number series 3 image number [id number]. No evidence of periappendiceal inflammatory changes. BOWEL: Evaluation of the bowel is somewhat limited due to the lack of oral contrast material. Stomach is incompletely distended. Visualized loops of small bowel exhibit normal contour and caliber. No evidence of acute mechanical small bowel obstruction. Stool and air seen throughout the large bowel. PERITONEUM: See above.. No free air. Small fat containing umbilical hernia. LYMPH NODES: Unremarkable. No enlarged lymph nodes. VASCULATURE: Unremarkable. No aortic aneurysm. BONES: The vertebral bodies are intact without significant degenerative spondylosis. Pelvis intact. OTHER FINDINGS: None. IMPRESSION: There are at least 2 peripherally enhancing (ring-like) foci within the right aspect of the pelvis likely within the right adnexal region measuring a pproximately 3.1 x 2.9 and 2.2 x 1.5 cm with surrounding free fluid extending into the cul de sac and extending into the right to the left side seroma partially surrounding the posterior margin of the left adnexal as well.. Findings may represent ruptured ovarian cyst and/or cysts however the possi bility of a hydrosalpinx less likely however not completely excluded.. No evidence of acute appendicitis. No evidence of nephrolithiasis or hydronephrosis. Mild fatty hepatic infiltration. Mild cardiomegaly. Assessment & Plan (1) Pelvic inflammatory disease Status: Acute (2) Ovarian cyst Status: Acute (3) Leukocytosis Status: Acute - Assessment and Plan (Free Text) Assessment: A/P- 27 year old female admitted with ? PID and ? ruptured ovarian cyst with high leukocytosis and abd pain. plan- check blood cx x 2 check UA and urine cx. check urine GC/Chlamydia. agree with IV doxycycline and cefoxitin as initiated by primary team. advise to also add either clindamycin or metronidazole for anaerobic coverage. would also start her on IV vanco pending further results. keep vanco trough between 10-15. also advise to check HIV ab/ag. all above d/w patient and she verbalizes full understanding of all above and agrees with above plan of care. Thank you for allowing me to take part in the care of this patient.
[2018-03-16 11:56] LABS: ANISOCYTOSIS MARKED; BANDS 2 % (0-2); LYMPHOCYTE 10 % (20-50); MICROCYTOSIS SLIGHT; MONOCYTE 8 % (0-10); NEUTROPHIL 80 % (42-75); PLATELET ESTIMATE NORMAL (NORMAL); TOTAL CELLS COUNTED 100
[2018-03-16 11:57] LABS: HYPOCHROMIC MODERATE
[2018-03-16 11:58] LABS: OVALOCYTES SLIGHT
--- NOTE | 2018-03-16 12:35 | CARD ---
APPROVED REPORT Date of service: 03/15/2018 EKG Measurement Heart [id number] <Conclusion> Normal sinus rhythm Right bundle branch block Abnormal ECG
--- NOTE | 2018-03-16 12:36 | US ---
Date of service: 03/15/2018 HISTORY: lower abdominal pain with WBC of 2000 COMPARISON: None available. TECHNIQUE: Transabdominal and transvaginal pelvic ultrasound was performed. FINDINGS: UTERUS: Measures 7.9 x 4.9 x 5.5 cm. Retroverted, normal in size and appearance. No fibroid or other mass lesion seen. ENDOMETRIUM: Measures 11.1 mm in diameter. Unremarkable. CERVIX: No cervical abnormality identified. RIGHT OVARY: Enlarged and measures 6.3 x 3.3 x 3.3 cm. No solid mass. Normal flow. There is a 2.6 x 2.3 x 2.5 cm simple cyst. There is a 2.0 x 1.3 x 1.0 cm complicated/hemorrhagic cyst. LEFT OVARY: Enlarged and measures 6.2 x 2.4 x 3.7 cm. No solid mass. Normal flow. Small complex fluid collection in the left adnexa. FREE FLUID: No significant free fluid noted. OTHER FINDINGS: None. IMPRESSION: Enlarged bilateral ovaries. 2.6 cm simple cyst in the right ovary. 2.0 cm complicated/hemorrhagic cyst in the right ovary. No torsion. No simple complex cyst in the left ovary. Small complex fluid collection in the left adnexa. Hydrosalpinx/pyosalpinx cannot be excluded. Gynecologic consult is advised if clinically indicated. A preliminary report was provided by [facility].
--- NOTE | 2018-03-16 13:32 | CP.PCM.PN ---
Subjective - Date & Time of Evaluation Date of Evaluation: 03/16/18 Time of Evaluation: 10:30 - Subjective Subjective: OBGYN progress note: Patient seen and examined at bedside this morning. She c/o diffuse abdominal pain, which partially improves w/ acetaminophen. She denies hx of gastric ulcers, n/v. Objective - Vital Signs/Intake and Output Vital Signs (last 24 hours): Temp Pulse Resp BP Pulse Ox 98.5 F 82 16 102/61 100 03/16/18 05:00 03/16/18 05:00 03/16/18 05:00 03/16/18 05:00 03/16/18 05:00 - Medications Medications: Current Medications Acetaminophen (Tylenol 325mg Tab) 650 mg PO Q4 PRN PRN Reason: Fever >100.4 F Sodium Chloride (Sodium Chloride 0.9%) 1,000 mls @ 1,000 mls/hr IV .Q1H MICHELLE Stop: 03/17/18 01:58 Last Admin: 03/16/18 02:31 Dose: 1,000 mls/hr Cefoxitin Sodium 2 gm/ Sodium (Chloride) 100 mls @ 100 mls/hr IVPB Q6H MICHELLE; Protocol Last Admin: 03/16/18 06:15 Dose: 100 mls/hr Doxycycline Hyclate 100 mg/ (Sodium Chloride) 100 mls @ 100 mls/hr IVPB Q12H MICHELLE; Protocol Sodium Chloride (Sodium Chloride 0.9%) 1,000 mls @ 100 mls/hr IV .Q10H MICHELLE Stop: 03/17/18 02:41 Last Admin: 03/16/18 06:18 Dose: 100 mls/hr Ondansetron HCl (Zofran Inj) 4 mg IVP Q6 PRN PRN Reason: Nausea/Vomiting - Labs Labs: 03/16/18 10:43 03/15/18 18:29 - Constitutional Appears: No Acute Distress - Respiratory Exam Respiratory Exam: Clear to Ausculation Bilateral, NORMAL BREATHING PATTERN - Cardiovascular Exam Cardiovascular Exam: REGULAR RHYTHM, +S1, +S2 - GI/Abdominal Exam GI & Abdominal Exam: Soft, Tenderness, Normal Bowel Sounds - Extremities Exam Extremities Exam: Full ROM, Normal Inspection. absent: Tenderness - Neurological Exam Neurological Exam: Alert, Awake, Oriented x3 - Psychiatric Exam Psychiatric exam: Normal Mood - Skin Skin Exam: Dry, Intact, Warm Assessment and Plan - Assessment and Plan (Free Text) Assessment: Assessment and Plan: 27 y/o female w/ hx of Chlamydia found to have PID -Afebrile today, tachycardia resolved, and WBC count trending down 20.1 -->15.9 -Patient started on Cefoxitin 2gm QID and Doxycycline 100mg BID -ID consult appreciated. Case discussed w/ Dr. Alamo; recommends adding Vanc 1gm Q12 and Clindamycin 600mg q8 to regimen -Toradol 30mg IVP for pain management -Chlamydia/GC RNA and blood cultures pending -Patient is stable for transfer to [facility] -Patient will need outpatient follow up w/ OBGYN -Case discussed w/ attending physician, Dr. Carter.
[2018-03-16] MEDS: Clindamycin 600mg/50ml NS 600 MG/50 ML BAG IVPB SCH ×2 (17:28→17:33)
--- NOTE | 2018-03-16 19:06 | CP.PCM.PN ---
<José James - Last Filed: 03/16/18 20:18> Subjective - Date & Time of Evaluation Date of Evaluation: 03/16/18 Time of Evaluation: 07:00 - Subjective Subjective: Patient seen and evaluated. Tachycardia and fever resolved. Still reports lower abdominal pain which has improved since yesterday. Denies any fever, chills, nausea, vomiting, diarrhea. Tolerating diet well PO. Objective - Vital Signs/Intake and Output Vital Signs (last 24 hours): Temp Pulse Resp BP Pulse Ox 98.4 F 83 16 98/64 L 97 03/16/18 16:11 03/16/18 16:11 03/16/18 16:11 03/16/18 16:11 03/16/18 16:11 - Medications Medications: Current Medications Acetaminophen (Tylenol 325mg Tab) 650 mg PO Q4 PRN PRN Reason: Fever >100.4 F Cefoxitin Sodium 2 gm/ Sodium (Chloride) 100 mls @ 100 mls/hr IVPB Q6H MICHELLE; Protocol Last Admin: 03/16/18 17:31 Dose: 100 mls/hr Doxycycline Hyclate 100 mg/ (Sodium Chloride) 100 mls @ 100 mls/hr IVPB Q12H MICHELLE; Protocol Sodium Chloride (Sodium Chloride 0.9%) 1,000 mls @ 100 mls/hr IV .Q10H MICHELLE Stop: 03/17/18 02:41 Last Admin: 03/16/18 06:18 Dose: 100 mls/hr Clindamycin Phosphate (Cleocin 600mg/50ml Ns) 600 mg in 50 mls @ 50 mls/hr IVPB Q8 MICHELLE; Protocol Last Admin: 03/16/18 17:33 Dose: Not Given Vancomycin HCl 1 gm/ Sodium (Chloride) 250 mls @ 166.667 mls/hr IVPB Q12 MICHELLE; Protocol Ondansetron HCl (Zofran Inj) 4 mg IVP Q6 PRN PRN Reason: Nausea/Vomiting - Labs Labs: 03/16/18 10:43 03/15/18 18:29 - Constitutional Appears: No Acute Distress - Head Exam Head Exam: ATRAUMATIC, NORMAL INSPECTION, NORMOCEPHALIC - ENT Exam ENT Exam: Mucous Membranes Moist - Respiratory Exam Respiratory Exam: Clear to Ausculation Bilateral, Wheezes, NORMAL BREATHING PATTERN - Cardiovascular Exam Cardiovascular Exam: REGULAR RHYTHM, +S1, +S2 - GI/Abdominal Exam GI & Abdominal Exam: Soft, Tenderness - Neurological Exam Neurological Exam: Alert, Awake, Oriented x3 - Psychiatric Exam Psychiatric exam: Normal Affect, Normal Mood - Skin Skin Exam: Dry, Intact, Normal Color Assessment and Plan - Assessment and Plan (Free Text) Assessment: 27 y/o female w/ hx of Chlamydia diagnosed w/ PID. Plan: -Afebrile today, tachycardia resolved, and WBC count trending down 20.1 -->15.9 -Patient is stable for transfer to [facility] -Continue with Cefoxitin 2gm QID, Doxycycline 100mg BID, Vanc 1gm Q12 and Clindamycin 600mg q8 as per ID -Chlamydia/GC RNA pending -Blood culture negative after 24 hours -ID on board -Monitor CBC am Case discussed w/ attending physician, Dr. Carter. <Rohit Carter - Last Filed: 03/17/18 07:59> Objective - Vital Signs/Intake and Output Vital Signs (last 24 hours): Temp Pulse Resp BP Pulse Ox 98.8 F 96 H 19 131/84 99 03/16/18 22:30 03/16/18 22:30 03/16/18 22:30 03/16/18 22:30 03/16/18 22:30 - Medications Medications: Current Medications Acetaminophen (Tylenol 325mg Tab) 650 mg PO Q4 PRN PRN Reason: Fever >100.4 F Acetaminophen (Tylenol 325mg Tab) 650 mg PO Q4 PRN PRN Reason: Pain, Mild (1-3) Cefoxitin Sodium 2 gm/ Sodium (Chloride) 100 mls @ 100 mls/hr IVPB Q6H MICHELLE; Protocol Last Admin: 03/17/18 06:09 Dose: 100 mls/hr Doxycycline Hyclate 100 mg/ (Sodium Chloride) 100 mls @ 100 mls/hr IVPB Q12H MICHELLE; Protocol Last Admin: 03/17/18 00:23 Dose: 100 mls/hr Clindamycin Phosphate (Cleocin 600mg/50ml Ns) 600 mg in 50 mls @ 50 mls/hr IVPB Q8 MICHELLE; Protocol Last Admin: 03/17/18 01:40 Dose: 50 mls/hr Vancomycin HCl 1 gm/ Sodium (Chloride) 250 mls @ 166.667 mls/hr IVPB Q12 MICHELLE; Protocol Last Admin: 03/16/18 22:44 Dose: Not Given Ketorolac Tromethamine (Toradol) 30 mg IVP Q6 PRN PRN Reason: Pain, moderate (4-7) Last Admin: 03/17/18 00:29 Dose: 30 mg Ondansetron HCl (Zofran Inj) 4 mg IVP Q6 PRN PRN Reason: Nausea/Vomiting - Labs Labs: 03/16/18 10:43 03/15/18 18:29 Assessment and Plan - Assessment and Plan (Free Text) Plan: 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
[2018-03-17] MEDS: Sodium Chloride 0.9% 1,000 ML IV SCH (00:18)
[2018-03-17] MEDS: Clindamycin 600mg/50ml NS 600 MG/50 ML BAG IVPB SCH ×3 (01:40→17:29)
[2018-03-17] MEDS: cefOXitin 2 GM in Sodium Chloride 0.9% 100 ML IVPB SCH ×5 (06:09→23:26)
--- NOTE | 2018-03-17 09:33 | CP.PCM.PN ---
Subjective - Date & Time of Evaluation Date of Evaluation: 03/17/18 Time of Evaluation: 09:33 - Subjective Subjective: ID Note- Pt. seen and examined today in med-surg floor. Pt. denies any fever or chills but states she still ahs lower abd. pain . denies any further nausea. denies any diarrhea. Objective - Vital Signs/Intake and Output Vital Signs (last 24 hours): Temp Pulse Resp BP Pulse Ox 98.1 F 82 20 114/72 100 03/17/18 08:17 03/17/18 08:17 03/17/18 08:17 03/17/18 08:17 03/17/18 08:17 - Medications Medications: Current Medications Acetaminophen (Tylenol 325mg Tab) 650 mg PO Q4 PRN PRN Reason: Fever >100.4 F Acetaminophen (Tylenol 325mg Tab) 650 mg PO Q4 PRN PRN Reason: Pain, Mild (1-3) Cefoxitin Sodium 2 gm/ Sodium (Chloride) 100 mls @ 100 mls/hr IVPB Q6H MICHELLE; Protocol Last Admin: 03/17/18 06:09 Dose: 100 mls/hr Doxycycline Hyclate 100 mg/ (Sodium Chloride) 100 mls @ 100 mls/hr IVPB Q12H MICHELLE; Protocol Last Admin: 03/17/18 00:23 Dose: 100 mls/hr Clindamycin Phosphate (Cleocin 600mg/50ml Ns) 600 mg in 50 mls @ 50 mls/hr IVPB Q8 MICHELLE; Protocol Last Admin: 03/17/18 09:03 Dose: 50 mls/hr Vancomycin HCl 1 gm/ Sodium (Chloride) 250 mls @ 166.667 mls/hr IVPB Q12 MICHELLE; Protocol Last Admin: 03/16/18 22:44 Dose: Not Given Ketorolac Tromethamine (Toradol) 30 mg IVP Q6 PRN PRN Reason: Pain, moderate (4-7) Last Admin: 03/17/18 00:29 Dose: 30 mg Ondansetron HCl (Zofran Inj) 4 mg IVP Q6 PRN PRN Reason: Nausea/Vomiting - Labs Labs: - Additional Findings Additional findings: - Constitutional Appears: No Acute Distress - Head Exam Head Exam: ATRAUMATIC - Eye Exam Eye Exam: EOMI, PERRL - ENT Exam ENT Exam: Normal Oropharynx - Neck Exam Neck exam: Positive for: Full Rom - Respiratory Exam Respiratory Exam: Clear to Auscultation Bilateral, NORMAL BREATHING PATTERN - Cardiovascular Exam Cardiovascular Exam: RRR, +S1, +S2 - GI/Abdominal Exam Additional comments: slightly distended, soft, + tenderness along lower abdomen no guarding, no rebound NO CVA tenderness b/l - Extremities Exam Extremities exam: Positive for: normal inspection - Neurological Exam Neurological exam: Alert, Oriented x 3 Laboratory Results - last 72 hr 03/15/18 03/15/18 03/15/18 18:29 18:29 18:30 WBC 16.1 H RBC 3.47 L Hgb 8.0 L Hct 26.3 L MCV 75.9 L MCH 23.2 L MCHC 30.5 L RDW 29.6 H Plt Count 268 MPV 7.7 Neut % (Auto) 84.5 H Lymph % (Auto) 11.0 L [place] % (Auto) 4.2 Eos % (Auto) 0.1 Baso % (Auto) 0.2 Neut # (Auto) 13.6 H Lymph # (Auto) 1.8 [place] # (Auto) 0.7 Eos # (Auto) 0.0 Baso # (Auto) 0.0 Neutrophils % (Manual) Band Neutrophils % Lymphocytes % (Manual) Monocytes % (Manual) Platelet Estimate Hypochromasia (manual) Anisocytosis (manual) Microcytosis (manual) Ovalocytes pO2 19 L VBG pH 7.32 VBG pCO2 47 VBG HCO3 21.2 VBG Total CO2 25.6 VBG O2 Sat (Calc) 33.3 L VBG Base Excess -2.2 L VBG Potassium 3.7 Glucose 90 Lactate 1.4 FiO2 21.0 Sodium 139 134.0 Potassium 3.9 Chloride 106 105.0 Carbon Dioxide 21 L Anion Gap 16 BUN 6 L Creatinine 0.7 Est GFR ( Amer) > 60 Est GFR (Non-Af Amer) > 60 Random Glucose 90 Calcium 9.2 Total Bilirubin 0.5 AST 19 ALT 21 Alkaline Phosphatase 92 Total Protein 8.0 Albumin 3.8 Globulin 4.2 H Albumin/Globulin Ratio 0.9 L Lipase 38 Serum HCG, Qual Venous Blood Potassium 3.7 Urine Color Urine Clarity Urine pH Ur Specific [place] Urine Protein Urine Glucose (UA) Urine Ketones Urine Blood Urine Nitrate Urine Bilirubin Urine Urobilinogen Ur Leukocyte Esterase Urine RBC (Auto) Urine Microscopic WBC Ur Squamous Epith Cells Urine Bacteria Blood Type Antibody Screen BBK History Checked 03/15/18 03/15/18 03/15/18 18:53 19:30 19:30 WBC RBC Hgb Hct MCV MCH MCHC RDW Plt Count MPV Neut % (Auto) Lymph % (Auto) [place] % (Auto) Eos % (Auto) Baso % (Auto) Neut # (Auto) Lymph # (Auto) [place] # (Auto) Eos # (Auto) Baso # (Auto) Neutrophils % (Manual) Band Neutrophils % Lymphocytes % (Manual) Monocytes % (Manual) Platelet Estimate Hypochromasia (manual) Anisocytosis (manual) Microcytosis (manual) Ovalocytes pO2 VBG pH VBG pCO2 VBG HCO3 VBG Total CO2 VBG O2 Sat (Calc) VBG Base Excess VBG Potassium Glucose Lactate FiO2 Sodium Potassium Chloride Carbon Dioxide Anion Gap BUN Creatinine Est GFR ( Amer) Est GFR (Non-Af Amer) Random Glucose Calcium Total Bilirubin AST ALT Alkaline Phosphatase Total Protein Albumin Globulin Albumin/Globulin Ratio Lipase Serum HCG, Qual Negative Venous Blood Potassium Urine Color Yellow Urine Clarity Slighty-cloudy Urine pH 5.0 Ur Specific [place] 1.059 H Urine Protein 100 Urine Glucose (UA) Neg Urine Ketones 20 Urine Blood Large Urine Nitrate Negative Urine Bilirubin Negative Urine Urobilinogen 4.0 H Ur Leukocyte Esterase Small Urine RBC (Auto) 1078 H Urine Microscopic WBC 11 H Ur Squamous Epith Cells 2 Urine Bacteria Rare Blood Type A NEGATIVE Antibody Screen Negative BBK History Checked Patient has bt 03/16/18 03/16/18 03/16/18 00:09 00:28 10:43 WBC 20.1 H 15.9 H RBC 4.07 3.64 L Hgb 9.4 L 8.5 L Hct 30.0 L 26.9 L MCV 73.7 L D 74.0 L MCH 23.2 L 23.4 L MCHC 31.5 L 31.6 L RDW 29.5 H 29.3 H Plt Count 458 H D 400 MPV 7.7 Neut % (Auto) 83.4 H Lymph % (Auto) 9.5 L [place] % (Auto) 6.6 Eos % (Auto) 0.3 Baso % (Auto) 0.2 Neut # (Auto) 13.3 H Lymph # (Auto) 1.5 [place] # (Auto) 1.0 H Eos # (Auto) 0.0 Baso # (Auto) 0.0 Neutrophils % (Manual) 80 H Band Neutrophils % 2 Lymphocytes % (Manual) 10 L Monocytes % (Manual) 8 Platelet Estimate Normal Hypochromasia (manual) Moderate Anisocytosis (manual) Marked Microcytosis (manual) Slight Ovalocytes Slight pO2 38 VBG pH 7.36 VBG pCO2 41 VBG HCO3 22.5 VBG Total CO2 24.5 VBG O2 Sat (Calc) 76.9 H VBG Base Excess -2.2 L VBG Potassium 3.3 L Glucose 133 H Lactate 1.1 FiO2 21.0 Sodium 133.0 Potassium Chloride 105.0 Carbon Dioxide Anion Gap BUN Creatinine Est GFR ( Amer) Est GFR (Non-Af Amer) Random Glucose Calcium Total Bilirubin AST ALT Alkaline Phosphatase Total Protein Albumin Globulin Albumin/Globulin Ratio Lipase Serum HCG, Qual Venous Blood Potassium 3.3 L Urine Color Urine Clarity Urine pH Ur Specific [place] Urine Protein Urine Glucose (UA) Urine Ketones Urine Blood Urine Nitrate Urine Bilirubin Urine Urobilinogen Ur Leukocyte Esterase Urine RBC (Auto) Urine Microscopic WBC Ur Squamous Epith Cells Urine Bacteria Blood Type Antibody Screen BBK History Checked Microbiology 03/15/18 18:53 Urine,Random Urine Culture - Final No Growth (<1,000 CFU/ML) 03/15/ 18:30 Blood-Venous Blood Culture - Preliminary NO GROWTH AFTER 24 HOURS Assessment and Plan (1) Pelvic inflammatory disease Status: Acute (2) Ovarian cyst Status: Acute (3) Leukocytosis Status: Acute - Assessment and Plan (Free Text) Assessment: A/P- 27 year old female admitted with ? PID and ? ruptured ovarian cyst with high leukocytosis and abd pain. clinically better. afebrile Leukocytosis trending down. blood cx- neg x 1 Urine cx- negative plan- await urine GC/Chlamydia. agree with IV doxycycline and cefoxitin as initiated by primary team. day #3 advise to also continue with IV clindamycin day #2. would also continue with IV vanco pending further results.day 32 keep vanco trough between 10-15. all above d/w patient and she verbalizes full understanding of all above and agrees with above plan of care. .
[2018-03-17 15:55] VITALS: RESP 18
[2018-03-18] MEDS: Clindamycin 600mg/50ml NS 600 MG/50 ML BAG IVPB SCH ×2 (08:20→09:49)
[2018-03-18 08:43] VITALS: O2SAT 100
[2018-03-18 09:41] LABS: BASO % 0.1 % (0.0-2.0); EOS # 0.1 K/uL (0.0-0.7); EOS % 0.9 % (0.0-4.0); HEMOGLOBIN 9.3 g/dL (12.0-16.0); LYMPH % 18.1 % (20.0-40.0); MEAN CELL VOLUME 73.2 fl (81.0-99.0); MEAN CORPUSCULAR HEMOGLOBIN 23.2 pg (27.0-31.0); MEAN CORPUSCULAR HGB CONC 31.7 g/dL (33.0-37.0); MEAN PLATELET VOLUME 7.8 fl (7.2-11.7); MONO # 0.6 K/uL (0.0-0.8); MONO % 5.3 % (0.0-10.0); NEUT # 8.5 K/uL (1.8-7.0); NEUT % 75.6 % (50.0-75.0); NRBC % 0.1 % (0.0-0.0); RED CELL DISTRIBUTION WIDTH 29.3 % (11.5-14.5); WHITE BLOOD COUNT 11.3 K/uL (4.8-10.8)
--- NOTE | 2018-03-18 10:10 | CP.PCM.PN ---
Subjective - Date & Time of Evaluation Date of Evaluation: 03/18/18 Time of Evaluation: 10:10 - Subjective Subjective: Id Note- Patient seen and examined today. Patietn states she feels better and her abd. pain is much less. denies any nausea. denies any diarrhea. has remained afebrile and is cleared by GALVANIZER to be d/c home today. Objective - Vital Signs/Intake and Output Vital Signs (last 24 hours): Temp Pulse Resp BP Pulse Ox 98.6 F 80 18 117/76 100 03/18/18 08:42 03/18/18 08:42 03/18/18 08:42 03/18/18 08:42 03/18/18 08:42 - Medications Medications: Current Medications Acetaminophen (Tylenol 325mg Tab) 650 mg PO Q4 PRN PRN Reason: Fever >100.4 F Acetaminophen (Tylenol 325mg Tab) 650 mg PO Q4 PRN PRN Reason: Pain, Mild (1-3) Cefoxitin Sodium 2 gm/ Sodium (Chloride) 100 mls @ 100 mls/hr IVPB Q6H MICHELLE; Protocol Last Admin: 03/17/18 23:26 Dose: 100 mls/hr Doxycycline Hyclate 100 mg/ (Sodium Chloride) 100 mls @ 100 mls/hr IVPB Q12H MICHELLE; Protocol Last Admin: 03/18/18 00:20 Dose: 100 mls/hr Clindamycin Phosphate (Cleocin 600mg/50ml Ns) 600 mg in 50 mls @ 50 mls/hr IVPB Q8 MICHELLE; Protocol Last Admin: 03/18/18 09:49 Dose: Not Given Vancomycin HCl 1 gm/ Sodium (Chloride) 250 mls @ 166.667 mls/hr IVPB Q12 MICHELLE; Protocol Last Admin: 03/18/18 09:49 Dose: Not Given Ketorolac Tromethamine (Toradol) 30 mg IVP Q6 PRN PRN Reason: Pain, moderate (4-7) Last Admin: 03/17/18 15:38 Dose: 30 mg Ondansetron HCl (Zofran Inj) 4 mg IVP Q6 PRN PRN Reason: Nausea/Vomiting - Labs Labs: - Additional Findings Additional findings: - Constitutional Appears: No Acute Distress - Head Exam Head Exam: ATRAUMATIC - Eye Exam Eye Exam: EOMI, PERRL - ENT Exam ENT Exam: Normal Oropharynx - Neck Exam Neck exam: Positive for: Full Rom - Respiratory Exam Respiratory Exam: Clear to Auscultation Bilateral, NORMAL BREATHING PATTERN - Cardiovascular Exam Cardiovascular Exam: RRR, +S1, +S2 - GI/Abdominal Exam Additional comments: ND soft, minimal + tenderness along lower abdomen only no guarding, no rebound NO CVA tenderness b/l - Extremities Exam Extremities exam: Positive for: normal inspection - Neurological Exam Neurological exam: Alert, Oriented x 3 Laboratory Results - last 72 hr 03/15/18 03/15/18 03/15/18 18:29 18:29 18:30 WBC 16.1 H RBC 3.47 L Hgb 8.0 L Hct 26.3 L MCV 75.9 L MCH 23.2 L MCHC 30.5 L RDW 29.6 H Plt Count 268 MPV 7.7 Neut % (Auto) 84.5 H Lymph % (Auto) 11.0 L [place] % (Auto) 4.2 Eos % (Auto) 0.1 Baso % (Auto) 0.2 Neut # (Auto) 13.6 H Lymph # (Auto) 1.8 [place] # (Auto) 0.7 Eos # (Auto) 0.0 Baso # (Auto) 0.0 Neutrophils % (Manual) Band Neutrophils % Lymphocytes % (Manual) Monocytes % (Manual) Platelet Estimate Hypochromasia (manual) Anisocytosis (manual) Microcytosis (manual) Ovalocytes pO2 19 L VBG pH 7.32 VBG pCO2 47 VBG HCO3 21.2 VBG Total CO2 25.6 VBG O2 Sat (Calc) 33.3 L VBG Base Excess -2.2 L VBG Potassium 3.7 Glucose 90 Lactate 1.4 FiO2 21.0 Sodium 139 134.0 Potassium 3.9 Chloride 106 105.0 Carbon Dioxide 21 L Anion Gap 16 BUN 6 L Creatinine 0.7 Est GFR ( Amer) > 60 Est GFR (Non-Af Amer) > 60 Random Glucose 90 Calcium 9.2 Total Bilirubin 0.5 AST 19 ALT 21 Alkaline Phosphatase 92 Total Protein 8.0 Albumin 3.8 Globulin 4.2 H Albumin/Globulin Ratio 0.9 L Lipase 38 Serum HCG, Qual Venous Blood Potassium 3.7 Urine Color Urine Clarity Urine pH Ur Specific [place] Urine Protein Urine Glucose (UA) Urine Ketones Urine Blood Urine Nitrate Urine Bilirubin Urine Urobilinogen Ur Leukocyte Esterase Urine RBC (Auto) Urine Microscopic WBC Ur Squamous Epith Cells Urine Bacteria C.trachomatis RNA (TMA) HIV-1 Ab Rapid Screen N.gonorrhoeae RNA (TMA) Blood Type Antibody Screen BBK History Checked 03/15/18 03/15/18 03/15/18 18:53 19:30 19:30 WBC RBC Hgb Hct MCV MCH MCHC RDW Plt Count MPV Neut % (Auto) Lymph % (Auto) [place] % (Auto) Eos % (Auto) Baso % (Auto) Neut # (Auto) Lymph # (Auto) [place] # (Auto) Eos # (Auto) Baso # (Auto) Neutrophils % (Manual) Band Neutrophils % Lymphocytes % (Manual) Monocytes % (Manual) Platelet Estimate Hypochromasia (manual) Anisocytosis (manual) Microcytosis (manual) Ovalocytes pO2 VBG pH VBG pCO2 VBG HCO3 VBG Total CO2 VBG O2 Sat (Calc) VBG Base Excess VBG Potassium Glucose Lactate FiO2 Sodium Potassium Chloride Carbon Dioxide Anion Gap BUN Creatinine Est GFR ( Amer) Est GFR (Non-Af Amer) Random Glucose Calcium Total Bilirubin AST ALT Alkaline Phosphatase Total Protein Albumin Globulin Albumin/Globulin Ratio Lipase Serum HCG, Qual Negative Venous Blood Potassium Urine Color Yellow Urine Clarity Slighty-cloudy Urine pH 5.0 Ur Specific [place] 1.059 H Urine Protein 100 Urine Glucose (UA) Neg Urine Ketones 20 Urine Blood Large Urine Nitrate Negative Urine Bilirubin Negative Urine Urobilinogen 4.0 H Ur Leukocyte Esterase Small Urine RBC (Auto) 1078 H Urine Microscopic WBC 11 H Ur Squamous Epith Cells 2 Urine Bacteria Rare C.trachomatis RNA (TMA) HIV-1 Ab Rapid Screen N.gonorrhoeae RNA (TMA) Blood Type A NEGATIVE Antibody Screen Negative BBK History Checked Patient has bt 03/16/18 03/16/18 03/16/18 00:09 00:28 01:11 WBC 20.1 H RBC 4.07 Hgb 9.4 L Hct 30.0 L MCV 73.7 L D MCH 23.2 L MCHC 31.5 L RDW 29.5 H Plt Count 458 H D MPV Neut % (Auto) Lymph % (Auto) [place] % (Auto) Eos % (Auto) Baso % (Auto) Neut # (Auto) Lymph # (Auto) [place] # (Auto) Eos # (Auto) Baso # (Auto) Neutrophils % (Manual) Band Neutrophils % Lymphocytes % (Manual) Monocytes % (Manual) Platelet Estimate Hypochromasia (manual) Anisocytosis (manual) Microcytosis (manual) Ovalocytes pO2 38 VBG pH 7.36 VBG pCO2 41 VBG HCO3 22.5 VBG Total CO2 24.5 VBG O2 Sat (Calc) 76.9 H VBG Base Excess -2.2 L VBG Potassium 3.3 L Glucose 133 H Lactate 1.1 FiO2 21.0 Sodium 133.0 Potassium Chloride 105.0 Carbon Dioxide Anion Gap BUN Creatinine Est GFR ( Amer) Est GFR (Non-Af Amer) Random Glucose Calcium Total Bilirubin AST ALT Alkaline Phosphatase Total Protein Albumin Globulin Albumin/Globulin Ratio Lipase Serum HCG, Qual Venous Blood Potassium 3.3 L Urine Color Urine Clarity Urine pH Ur Specific [place] Urine Protein Urine Glucose (UA) Urine Ketones Urine Blood Urine Nitrate Urine Bilirubin Urine Urobilinogen Ur Leukocyte Esterase Urine RBC (Auto) Urine Microscopic WBC Ur Squamous Epith Cells Urine Bacteria C.trachomatis RNA (TMA) Not detected HIV-1 Ab Rapid Screen N.gonorrhoeae RNA (TMA) Detected H Blood Type Antibody Screen BBK History Checked 03/16/18 03/18/18 03/18/18 10:43 09:30 09:49 WBC 15.9 H 11.3 H RBC 3.64 L 4.00 Hgb 8.5 L 9.3 L Hct 26.9 L 29.3 L MCV 74.0 L 73.2 L MCH 23.4 L 23.2 L MCHC 31.6 L 31.7 L RDW 29.3 H 29.3 H Plt Count 400 509 H D MPV 7.7 7.8 Neut % (Auto) 83.4 H 75.6 H Lymph % (Auto) 9.5 L 18.1 L [place] % (Auto) 6.6 5.3 Eos % (Auto) 0.3 0.9 Baso % (Auto) 0.2 0.1 Neut # (Auto) 13.3 H 8.5 H Lymph # (Auto) 1.5 2.0 [place] # (Auto) 1.0 H 0.6 Eos # (Auto) 0.0 0.1 Baso # (Auto) 0.0 0.0 Neutrophils % (Manual) 80 H Band Neutrophils % 2 Lymphocytes % (Manual) 10 L Monocytes % (Manual) 8 Platelet Estimate Normal Hypochromasia (manual) Moderate Anisocytosis (manual) Marked Microcytosis (manual) Slight Ovalocytes Slight pO2 VBG pH VBG pCO2 VBG HCO3 VBG Total CO2 VBG O2 Sat (Calc) VBG Base Excess VBG Potassium Glucose Lactate FiO2 Sodium Potassium Chloride Carbon Dioxide Anion Gap BUN Creatinine Est GFR ( Amer) Est GFR (Non-Af Amer) Random Glucose Calcium Total Bilirubin AST ALT Alkaline Phosphatase Total Protein Albumin Globulin Albumin/Globulin Ratio Lipase Serum HCG, Qual Venous Blood Potassium Urine Color Urine Clarity Urine pH Ur Specific [place] Urine Protein Urine Glucose (UA) Urine Ketones Urine Blood Urine Nitrate Urine Bilirubin Urine Urobilinogen Ur Leukocyte Esterase Urine RBC (Auto) Urine Microscopic WBC Ur Squamous Epith Cells Urine Bacteria C.trachomatis RNA (TMA) HIV-1 Ab Rapid Screen Non reactive N.gonorrhoeae RNA (TMA) Blood Type Antibody Screen BBK History Checked Microbiology 03/16/18 23:14 Blood-Venous Blood Culture - Preliminary NO GROWTH AFTER 24 HOURS 03/15/18 18:30 Blood-Venous Blood Culture - Preliminary NO GROWTH AFTER 48 HOURS 03/15/18 18:53 Urine,Random Urine Culture - Final No Growth (<1,000 CFU/ML) Assessment and Plan (1) Pelvic inflammatory disease Status: Acute (2) Ovarian cyst Status: Acute (3) Leukocytosis Status: Acute - Assessment and Plan (Free Text) Assessment: A/P- 27 year old female admitted with ? PID and ? ruptured ovarian cyst with high leukocytosis and abd pain. clinically much better. afebrile past 48 hours Leukocytosis resolved. blood cx- neg x 2 Urine cx- negative Urine Gonorehhea- pos Urine chlamydia- neg HIV ab- negative plan- has received 3 days of IV doxycycline and cefoxitin , today is day #4 has received 3 days of IV clindamycin as well for anaerobic coverage. and has received 3 days of IV vancomycin. pt. is being d/c home today as per [facility]ER. advise to d/c home on oral doxycyline 100 mg BID for 14 days along with metronidazole 500 mg q8 hours for 14 days and augmentin 875 mg BID for 7 days. advise to check repeat urine GC/chlamydia next week at her GAL[facility]IZER office. advise to have close f/u with her Industrial Therapist in 3-4 days as outpatient. advise to check RPR as well. safe sex practices d/w patient as well. Patient verbalizes full understanding of all above and agrees with above plan of care. All above d/w [facility] team as well.
--- NOTE | 2018-03-18 12:48 | CP.PCM.PN ---
<Joanna Ni - Last Filed: 03/18/18 13:04> Subjective - Date & Time of Evaluation Date of Evaluation: 03/18/18 Time of Evaluation: 09:30 - Subjective Subjective: OBGYN progress note: Patient seen and examined at bedside this AM. Sitting up in bed comfortably. Reports abdominal pain is improving. She endorses tolerating PO, ate breakfast this AM. Patient ambulating. Denies nausea/vomiting/chills. Labs, nurse notes, and charts reviewed. Objective - Vital Signs/Intake and Output Vital Signs (last 24 hours): Temp Pulse Resp BP Pulse Ox 98.6 F 80 18 117/76 100 03/18/18 08:42 03/18/18 08:42 03/18/18 08:42 03/18/18 08:42 03/18/18 08:42 - Medications Medications: Current Medications Acetaminophen (Tylenol 325mg Tab) 650 mg PO Q4 PRN PRN Reason: Fever >100.4 F Acetaminophen (Tylenol 325mg Tab) 650 mg PO Q4 PRN PRN Reason: Pain, Mild (1-3) Cefoxitin Sodium 2 gm/ Sodium (Chloride) 100 mls @ 100 mls/hr IVPB Q6H [facility]; Protocol Last Admin: 03/17/18 23:26 Dose: 100 mls/hr Doxycycline Hyclate 100 mg/ (Sodium Chloride) 100 mls @ 100 mls/hr IVPB Q12H [facility]; Protocol Last Admin: 03/18/18 00:20 Dose: 100 mls/hr Clindamycin Phosphate (Cleocin 600mg/50ml Ns) 600 mg in 50 mls @ 50 mls/hr IVPB Q8 [facility]; Protocol Last Admin: 03/18/18 09:49 Dose: Not Given Vancomycin HCl 1 gm/ Sodium (Chloride) 250 mls @ 166.667 mls/hr IVPB Q12 [facility]; Protocol Last Admin: 03/18/18 09:49 Dose: Not Given Ketorolac Tromethamine (Toradol) 30 mg IVP Q6 PRN PRN Reason: Pain, moderate (4-7) Last Admin: 03/17/18 15:38 Dose: 30 mg Ondansetron HCl (Zofran Inj) 4 mg IVP Q6 PRN PRN Reason: Nausea/Vomiting - Labs Labs: 03/18/18 09:30 03/15/18 18:29 - Constitutional Appears: Well, No Acute Distress - ENT Exam ENT Exam: Mucous Membranes Moist - Respiratory Exam Respiratory Exam: Clear to Ausculation Bilateral, NORMAL BREATHING PATTERN - Cardiovascular Exam Cardiovascular Exam: RRR, +S1, +S2 - GI/Abdominal Exam GI & Abdominal Exam: Soft, Tenderness (improving), Normal Bowel Sounds - Back Exam Back Exam: NORMAL INSPECTION. absent: CVA tenderness (L), CVA tenderness (R) - Neurological Exam Neurological Exam: Alert, Awake, Oriented x3 - Psychiatric Exam Psychiatric exam: Normal Affect - Skin Skin Exam: Dry, Intact, Warm Assessment and Plan - Assessment and Plan (Free Text) Assessment: 27 y/o female w/ hx of Chlamydia diagnosed w/ PID. Plan: Pelvic Inflammatory Disease w/o Sepsis -Afebrile > 48 hours -WBC count trending down 20.1 -->15.9---> 11.3 -s/p 3 days IV doxycycline and cefoxitin, clindamycin, and vancomycin. -Chlamydia negative, Gonorrhea positive -HIV nonreactive, RPR pending -Blood cultures: 03/15 negative x 48hours, 03/16 negative x 24 hours, urine culture negative -ID on board, appreciate recs -Patient is clinically improving. Will d/c on Doxycycline 100mg PO BID x 14 days and Metronidazole 500mg PO BID x 14 days -Patient advised of importance of [employer] follow up in 2-3 days. Case discussed w/ attending physician, Dr. Silva <Humberto Silva - Last Filed: 03/18/18 14:29> Objective - Vital Signs/Intake and Output Vital Signs (last 24 hours): Temp Pulse Resp BP Pulse Ox 98.6 F 80 18 117/76 100 03/18/18 08:42 03/18/18 08:42 03/18/18 08:42 03/18/18 08:42 03/18/18 08:42 - Medications Medications: Current Medications Acetaminophen (Tylenol 325mg Tab) 650 mg PO Q4 PRN PRN Reason: Fever >100.4 F Acetaminophen (Tylenol 325mg Tab) 650 mg PO Q4 PRN PRN Reason: Pain, Mild (1-3) Cefoxitin Sodium 2 gm/ Sodium (Chloride) 100 mls @ 100 mls/hr IVPB Q6H [facility]; Protocol Last Admin: 03/17/18 23:26 Dose: 100 mls/hr Doxycycline Hyclate 100 mg/ (Sodium Chloride) 100 mls @ 100 mls/hr IVPB Q12H [facility]; Protocol Last Admin: 03/18/18 00:20 Dose: 100 mls/hr Clindamycin Phosphate (Cleocin 600mg/50ml Ns) 600 mg in 50 mls @ 50 mls/hr IVPB Q8 [facility]; Protocol Last Admin: 03/18/18 09:49 Dose: Not Given Vancomycin HCl 1 gm/ Sodium (Chloride) 250 mls @ 166.667 mls/hr IVPB Q12 [facility]; Protocol Last Admin: 03/18/18 09:49 Dose: Not Given Ketorolac Tromethamine (Toradol) 30 mg IVP Q6 PRN PRN Reason: Pain, moderate (4-7) Last Admin: 03/17/18 15:38 Dose: 30 mg Ondansetron HCl (Zofran Inj) 4 mg IVP Q6 PRN PRN Reason: Nausea/Vomiting - Labs Labs: 03/18/18 09:30 03/15/18 18:29 Assessment and Plan - Assessment and Plan (Free Text) Plan: Addendum: Patient reports pain is improving. On exam, abdomen soft, nontender, nondistended no rebound, no guarding. Patient has been afebrile for greater than 48 hours. Blood cell count continues to trending downward. Plan to discharge patient home and continue by mouth antibiotics for 2 weeks. Patient will follow up with [employer] doctor in 2 weeks. I discussed plan with patient all patient questions answered. Ricardo
[2018-03-18 16:01] VITALS: BP 121/67; PULSE 72; TEMP 98.4
== END 2018-03-18 16:15 | disposition home or self-care (01) | DRG 368 ==
LOC: H.ER 17:12 → H.ERHOLD 03-16 01:02 → OBSVTOIN 03-16 02:08 → H.TEL 03-16 02:50 → H.MEDSURG1 03-16 22:40
PROVIDERS: ADMIT Obstetrics & Gynecology; ATTEND Obstetrics & Gynecology
DX: N73.8 Other specified female pelvic inflammatory diseases (principal); D50.8 Other iron deficiency anemias; D57.3 Sickle-cell trait; N83.201 Unspecified ovarian cyst, right side; D72.828 Other elevated white blood cell count; A54.9 Gonococcal infection, unspecified